=== PATIENT | female | born 1975 | race Caucasian/White ===

== ENCOUNTER → 2024-06-08 10:24 | Outpatient (REF) | payer OTHER, SELFPAY ==
[2024-06-09 11:15] LABS: Mumps Virus IgG Positive; Rubeola (Measles) IgG Positive; Varicella Zoster IgG (VZV) Positive
[2024-06-09 19:11] LABS: Rubella Positive
[2024-06-10 15:17] LABS: Quantiferon Mitogen minus NIL 9.98 IU/mL; Quantiferon NIL 0.02 IU/mL; Quantiferon Plus TB1 minus NIL 0.01 IU/mL (<=0.34); Quantiferon TB Gold Plus Negative (Negative)
== END ==
LOC: OHS 10:24
PROVIDERS: ATTENDING PHYSICIAN Nurse Practitioner Family
DX: Z23 Encounter for immunization (principal)
CPT/HCPCS: 36415; 86480; 86735; 86762; 86765; 86787